=== PATIENT | female | born 1975 | race Two or more races ===

== ENCOUNTER 2020-03-26 15:13 | Inpatient (IN) | payer OTHER ==
[~2020-03-26] VITALS: Ht 160 cm; Wt 61.0 kg
[2020-03-26 15:36] VITALS: BP 114/75
[2020-03-26] MEDS: OXYcodone IR 5MG TABLET PO PRN ×2 (15:56→20:56)
[2020-03-26] MEDS ORDERED: morphine SULFATE 10 MG/ML, 1ML IVPush PRN (16:00)
[2020-03-26] MEDS ORDERED: LORazepam 2 MG/ML, 1ML IVPush PRN (16:00)
[2020-03-26] MEDS ORDERED: ONDANSETRON 2MG/ML, 2ML IVPush PRN (16:00)
[2020-03-26] MEDS ORDERED: ONDANSETRON 2MG/ML, 2ML IV PRN (17:00)
[2020-03-26] MEDS ORDERED: ONDANSETRON ODT 4 MG PO PRN (17:00)
[2020-03-26] MEDS ORDERED: MORPHINE SULFATE 4 MG/ML, 1ML IV PRN (17:00)
[2020-03-26] MEDS ORDERED: OXYcodone IR 5MG TABLET PO PRN (17:00)
[2020-03-26] MEDS ORDERED: PLEASE ENTER HEIGHT AND WEIGHT MC SCH (17:00)
[2020-03-26] MEDS ORDERED: ZOLPIDEM 5MG TABLET PO PRN (17:00)
[2020-03-26] MEDS ORDERED: LISI-420 PO (17:18)
[2020-03-26] MEDS ORDERED: AMIT150T PO (17:18)
[2020-03-26] MEDS ORDERED: LYSI100010 PO (17:18)
[2020-03-26] MEDS ORDERED: MAGN400T36 PO (17:18)
[2020-03-26] MEDS ORDERED: BLAC40CA PO (17:18)
[2020-03-26] MEDS ORDERED: VIT1TABL PO (17:18)
[2020-03-26 17:56] LABS: BASOPHILS # (AUTO) 0.01 x10^3/uL (0-0.1); BASOPHILS % (AUTO) 0 % (0-1); EOSINOPHILS # (AUTO) 0.15 x10^3/uL (0-0.4); EOSINOPHILS % (AUTO) 2 % (1-7); LYMPHOCYTES # (AUTO) 0.89 x10^3/uL (1-3.4); LYMPHOCYTES % (AUTO) 9 % (22-44); MD NO; MEAN CORPUSCULAR HEMOGLOBIN 27.3 pg (27.0-34.8); MEAN CORPUSCULAR HGB CONC 32.7 g/dL (32.4-35.8); MEAN CORPUSCULAR VOLUME 83.4 fL (80-100); MEAN PLATELET VOLUME 6.4 fL (7.4-10.4); MONOCYTES # (AUTO) 0.46 x10^3/uL (0.2-0.8); MONOCYTES % (AUTO) 5 % (2-9); NEUTROPHILS # (AUTO) 8.46 x10^3/uL (1.8-6.8); NEUTROPHILS % (AUTO) 85 % (42-75); PLATELET COUNT 533 x10^3/uL (130-400); RED BLOOD COUNT 4.49 x10^6/uL (3.82-5.3); RED CELL DISTRIBUTION WIDTH 18.3 % (9.6-15.2)
[2020-03-26 18:05] LABS: CHLORIDE 99 mmol/L (98-107)
[2020-03-26 18:19] LABS: ALANINE AMINOTRANSFERASE 14 U/L (12-78); ALKALINE PHOSPHATASE 341 U/L (45-117); ANION GAP 6 mmol/L (5-15); BILIRUBIN,TOTAL 0.3 mg/dL (0.2-1.0); CALCIUM 10.4 mg/dL (8.5-10.1); CREATININE 0.71 mg/dL (0.55-1.02)
[2020-03-26 18:25] LABS: ALBUMIN 2.6 g/dL (3.4-5.0)
[2020-03-26 18:54] VITALS: BP_SYST 102; BP_SYST 117; BP_DIAS 70; BP_DIAS 73
[2020-03-26] MEDS: FAMOTIDINE 20 MG TABLET PO SCH (20:13)
[2020-03-26] MEDS: MORPHINE SULFATE 4 MG/ML, 1ML IVPush PRN ×2 (20:14→23:24)
[2020-03-26] MEDS: LORazepam 0.5MG TABLET PO PRN (20:56)
[2020-03-27 00:37] VITALS: BP 127/89
[2020-03-27] MEDS: OXYcodone IR 5MG TABLET PO PRN (00:52)
[2020-03-27] MEDS: MORPHINE SULFATE 4 MG/ML, 1ML IVPush PRN (02:46)
[2020-03-27] MEDS: LORazepam 0.5MG TABLET PO PRN (03:17)
[2020-03-27 05:54] LABS: BASOPHILS # (AUTO) 0.03 x10^3/uL (0-0.1); BASOPHILS % (AUTO) 0 % (0-1); EOSINOPHILS % (AUTO) 2 % (1-7); LYMPHOCYTES # (AUTO) 0.83 x10^3/uL (1-3.4); LYMPHOCYTES % (AUTO) 9 % (22-44); MD NO; MEAN CORPUSCULAR HEMOGLOBIN 27.2 pg (27.0-34.8); MEAN CORPUSCULAR HGB CONC 32.5 g/dL (32.4-35.8); MEAN CORPUSCULAR VOLUME 83.7 fL (80-100); MEAN PLATELET VOLUME 6.7 fL (7.4-10.4); MONOCYTES # (AUTO) 0.68 x10^3/uL (0.2-0.8); MONOCYTES % (AUTO) 7 % (2-9); NEUTROPHILS # (AUTO) 7.89 x10^3/uL (1.8-6.8); NEUTROPHILS % (AUTO) 82 % (42-75); PLATELET COUNT 489 x10^3/uL (130-400); RED BLOOD COUNT 4.08 x10^6/uL (3.82-5.3); RED CELL DISTRIBUTION WIDTH 17.9 % (9.6-15.2)
[2020-03-27 06:25] VITALS: BP 120/85
[2020-03-27] MEDS: FAMOTIDINE 20 MG TABLET PO SCH ×2 (07:14→21:00)
[2020-03-27 08:32] LABS: MICROSCOPIC AUTO
[2020-03-27] MEDS: LORazepam 2 MG/ML, 1ML IVPush PRN ×6 (09:01→23:48)
[2020-03-27 13:13] VITALS: BP 111/79
[2020-03-27] MEDS ORDERED: CHLORHEXIDINE 15 ML UDC MM ONE (15:30)
[2020-03-27] MEDS ORDERED: BUPIVACAINE/PF 0.5% ONE (15:31)
[2020-03-27] MEDS ORDERED: MIDAZOLAM 1 MG/ML, 2ML ONE (15:40)
[2020-03-27] MEDS ORDERED: FENTANYL PF 100 MCG/2ML ONE ×3 (15:41→18:27)
[2020-03-27] MEDS ORDERED: KETAMINE 10 MG/ML, 20ML ONE (15:55)
[2020-03-27] MEDS ORDERED: PROMETHAZINE 25 MG/ML, 1ML IVPush PRN (16:30)
[2020-03-27] MEDS ORDERED: HYDROcodone/APAP 7.5-325MG/15ML UDC PO PRN (16:30)
[2020-03-27] MEDS ORDERED: OXYcodone 5 MG/5 ML ORAL.SOL UDC PO PRN (16:30)
[2020-03-27] MEDS ORDERED: MEPERIDINE/PF 25MG/0.5ML IVPush PRN (16:30)
[2020-03-27] MEDS ORDERED: KETOROLAC 30 MG/1 ML IVPush PRN (16:30)
[2020-03-27] MEDS ORDERED: SUGAMMADEX 200 MG/2 ML IVPush ONE (16:31)
[2020-03-27] MEDS ORDERED: CEFOTETAN 2 GM ONE (16:31)
[2020-03-27] MEDS ORDERED: METOPROLOL 1 MG/ML, 5ML ONE (16:31)
[2020-03-27] MEDS ORDERED: PROPOFOL 10 MG/ML, 20ML ONE (17:59)
[2020-03-27] MEDS ORDERED: ROCURONIUM 10MG/ML,5ML ONE (17:59)
[2020-03-27] MEDS ORDERED: NEOSTIGMINE 1 MG/ML, 10ML ONE (17:59)
[2020-03-27] MEDS ORDERED: SUCCINYLCHOLINE 20 MG/ML, 10ML ONE (17:59)
[2020-03-27] MEDS ORDERED: ONDANSETRON 2MG/ML, 2ML ONE (17:59)
[2020-03-27] MEDS ORDERED: DEXAMETHASONE 4 MG/ML, 1ML ONE (17:59)
[2020-03-27] MEDS ORDERED: GLYCOPYRROLATE 0.2MG/1ML, 5ML ONE (17:59)
[2020-03-27] MEDS ORDERED: CEFAZOLIN 1,000 MG ONE (17:59)
[2020-03-27] MEDS: FENTANYL PF 100 MCG/2ML IV PRN ×2 (18:28→18:40)
[2020-03-27] MEDS ORDERED: HYDROmorphone 2 MG/ML, 1ML ONE (18:32)
[2020-03-27] MEDS: HYDROmorphone 1 MG/ML, 1ML INJ IVPush PRN ×4 (18:35→19:05)
[2020-03-27] MEDS ORDERED: LORazepam 2 MG/ML, 1ML ONE (18:41)
[2020-03-27] MEDS ORDERED: KETOROLAC 30 MG/1 ML IM SCH (20:00)
[2020-03-27 20:18] VITALS: BP 126/65
[2020-03-27] MEDS: KETOROLAC 30 MG/1 ML IVPush SCH (20:22)
[2020-03-28 01:15] VITALS: BP 105/72
[2020-03-28] MEDS: KETOROLAC 30 MG/1 ML IVPush SCH ×3 (04:09→19:59)
[2020-03-28] MEDS: OXYcodone IR 5MG TABLET PO PRN ×3 (05:27→20:37)
[2020-03-28 06:39] VITALS: BP 135/81
[2020-03-28] MEDS: FAMOTIDINE 20 MG TABLET PO SCH ×2 (08:03→19:59)
[2020-03-28] MEDS: SODIUM CHLORIDE 0.9% 1,000 ML IV SCH ×3 (08:57→20:39)
[2020-03-28 09:01] LABS: BASOPHILS # (AUTO) 0.03 x10^3/uL (0-0.1); BASOPHILS % (AUTO) 0 % (0-1); EOSINOPHILS # (AUTO) 0.01 x10^3/uL (0-0.4); EOSINOPHILS % (AUTO) 0 % (1-7); LYMPHOCYTES # (AUTO) 0.74 x10^3/uL (1-3.4); LYMPHOCYTES % (AUTO) 7 % (22-44); MD NO; MEAN CORPUSCULAR HEMOGLOBIN 26.9 pg (27.0-34.8); MEAN CORPUSCULAR VOLUME 84.2 fL (80-100); MEAN PLATELET VOLUME 5.9 fL (7.4-10.4); MONOCYTES # (AUTO) 0.51 x10^3/uL (0.2-0.8); MONOCYTES % (AUTO) 5 % (2-9); NEUTROPHILS # (AUTO) 9.78 x10^3/uL (1.8-6.8); NEUTROPHILS % (AUTO) 88 % (42-75); PLATELET COUNT 561 x10^3/uL (130-400); RED BLOOD COUNT 3.86 x10^6/uL (3.82-5.3); RED CELL DISTRIBUTION WIDTH 17.9 % (9.6-15.2)
[2020-03-28 09:14] LABS: ANION GAP 9 mmol/L (5-15); CALCIUM 9.6 mg/dL (8.5-10.1); CHLORIDE 100 mmol/L (98-107)
[2020-03-28 12:21] VITALS: BP 122/80
[2020-03-28] MEDS: LORazepam 2 MG/ML, 1ML IVPush PRN ×2 (13:44→19:59)
[2020-03-28 19:55] VITALS: BP 123/79
[2020-03-29 00:02] VITALS: BP 109/65
[2020-03-29 00:43] VITALS: BP 120/85
[2020-03-29 00:46] VITALS: BP 120/85
[2020-03-29] MEDS: KETOROLAC 30 MG/1 ML IVPush SCH ×5 (01:06→20:03)
[2020-03-29] MEDS: OXYcodone IR 5MG TABLET PO PRN ×2 (01:07→06:07)
[2020-03-29] MEDS ORDERED: LORazepam 2 MG/ML, 1ML IVPush PRN (02:08)
[2020-03-29] MEDS: SODIUM CHLORIDE 0.9% 1,000 ML IV SCH ×2 (04:17→08:30)
[2020-03-29 05:00] LABS: BASOPHILS # (AUTO) 0.02 x10^3/uL (0-0.1); BASOPHILS % (AUTO) 0 % (0-1); EOSINOPHILS # (AUTO) 0.11 x10^3/uL (0-0.4); EOSINOPHILS % (AUTO) 2 % (1-7); LYMPHOCYTES # (AUTO) 0.66 x10^3/uL (1-3.4); LYMPHOCYTES % (AUTO) 9 % (22-44); MD NO; MEAN CORPUSCULAR HEMOGLOBIN 27.5 pg (27.0-34.8); MEAN CORPUSCULAR HGB CONC 32.8 g/dL (32.4-35.8); MEAN CORPUSCULAR VOLUME 83.7 fL (80-100); MEAN PLATELET VOLUME 5.8 fL (7.4-10.4); MONOCYTES # (AUTO) 0.54 x10^3/uL (0.2-0.8); MONOCYTES % (AUTO) 7 % (2-9); NEUTROPHILS % (AUTO) 82 % (42-75); PLATELET COUNT 474 x10^3/uL (130-400); RED BLOOD COUNT 3.22 x10^6/uL (3.82-5.3); RED CELL DISTRIBUTION WIDTH 16.9 % (9.6-15.2)
[2020-03-29 05:04] LABS: ANION GAP 9 mmol/L (5-15); CALCIUM 8.4 mg/dL (8.5-10.1); CHLORIDE 105 mmol/L (98-107)
[2020-03-29] MEDS: HYDROmorphone 1 MG/ML, 1ML INJ IV PRN ×8 (07:15→23:02)
[2020-03-29 08:21] VITALS: BP 154/85
[2020-03-29] MEDS ORDERED: LIDOCAINE/PRILOCAINE CRM W/TEG 5GM TP ONE (08:30)
[2020-03-29] MEDS: LIDOCAINE 4% CREAM 5GM TUBE EXT PRN ×4 (08:38→19:19)
[2020-03-29] MEDS: FAMOTIDINE 20 MG TABLET PO SCH ×2 (09:54→20:59)
[2020-03-29] MEDS: LIDOCAINE GEL 2%, 5ML MM PRN ×2 (10:10→19:19)
[2020-03-29 10:28] LABS: INTERNATIONAL NORMALIZED RATIO 1.25 (0.93-1.1); PROTHROMBIN TIME 13.3 Seconds (9.6-11.5)
[2020-03-29] MEDS ORDERED: HYDROmorphone 1 MG/ML, 1ML INJ IV ONE (11:00)
[2020-03-29] MEDS ORDERED: CALCIUM ACETATE/ALUMINUM SULF PACKET TP PRN (11:00)
[2020-03-29] MEDS ORDERED: HYDROmorphone 2 MG/ML, 1ML ONE ×2 (11:27→14:45)
[2020-03-29 13:00] VITALS: BP 136/89
[2020-03-29 20:08] VITALS: BP 149/88
[2020-03-29 21:26] LABS: MICROSCOPIC INDICATED
[2020-03-30] MEDS: LIDOCAINE 4% CREAM 15GM TUBE EXT PRN ×2 (00:20→23:11)
[2020-03-30] MEDS ORDERED: HYDROmorphone 2 MG/ML, 1ML ONE ×5 (00:58→14:37)
[2020-03-30] MEDS: HYDROmorphone 1 MG/ML, 1ML INJ IV PRN ×8 (01:00→22:23)
[2020-03-30] MEDS: KETOROLAC 30 MG/1 ML IVPush SCH ×4 (01:50→20:08)
[2020-03-30 02:29] VITALS: BP 145/87
[2020-03-30 05:02] LABS: BASOPHILS # (AUTO) 0.03 x10^3/uL (0-0.1); BASOPHILS % (AUTO) 0 % (0-1); EOSINOPHILS # (AUTO) 0.24 x10^3/uL (0-0.4); EOSINOPHILS % (AUTO) 3 % (1-7); LYMPHOCYTES # (AUTO) 0.62 x10^3/uL (1-3.4); LYMPHOCYTES % (AUTO) 8 % (22-44); MD NO; MEAN CORPUSCULAR HGB CONC 32.6 g/dL (32.4-35.8); MEAN CORPUSCULAR VOLUME 82.9 fL (80-100); MEAN PLATELET VOLUME 6.2 fL (7.4-10.4); MONOCYTES # (AUTO) 0.61 x10^3/uL (0.2-0.8); MONOCYTES % (AUTO) 8 % (2-9); NEUTROPHILS # (AUTO) 5.98 x10^3/uL (1.8-6.8); NEUTROPHILS % (AUTO) 80 % (42-75); PLATELET COUNT 419 x10^3/uL (130-400); RED BLOOD COUNT 3.74 x10^6/uL (3.82-5.3); RED CELL DISTRIBUTION WIDTH 17.4 % (9.6-15.2)
[2020-03-30 05:12] LABS: CHLORIDE 101 mmol/L (98-107); CREATININE 0.46 mg/dL (0.55-1.02)
[2020-03-30 05:13] LABS: ANION GAP 7 mmol/L (5-15); CALCIUM 8.9 mg/dL (8.5-10.1)
[2020-03-30] MEDS: SODIUM CHLORIDE 0.9% 1,000 ML IV SCH (05:28)
[2020-03-30] MEDS: FAMOTIDINE 20 MG TABLET PO SCH ×2 (08:04→20:07)
[2020-03-30 08:20] VITALS: BP 146/86
[2020-03-30 13:20] VITALS: BP 167/100
[2020-03-30] MEDS: LIDOCAINE GEL 2%, 5ML MM PRN ×2 (16:00→23:10)
[2020-03-30 18:40] VITALS: BP 155/99
[2020-03-30] MEDS: OXYcodone/APAP 5/325MG TABLET PO PRN (20:08)
[2020-03-31] MEDS: KETOROLAC 30 MG/1 ML IVPush SCH ×4 (02:12→20:27)
[2020-03-31 02:23] VITALS: BP 144/90
[2020-03-31] MEDS: OXYcodone/APAP 5/325MG TABLET PO PRN ×3 (02:26→14:25)
[2020-03-31] MEDS: LIDOCAINE GEL 2%, 5ML MM PRN ×2 (05:08→16:51)
[2020-03-31] MEDS: LIDOCAINE 4% CREAM 15GM TUBE EXT PRN ×2 (05:09→16:50)
[2020-03-31 07:15] VITALS: BP 161/114
[2020-03-31] MEDS: FAMOTIDINE 20 MG TABLET PO SCH ×2 (07:39→20:27)
[2020-03-31] MEDS: LISINOPRIL 20 MG TABLET PO SCH (09:43)
[2020-03-31 13:38] VITALS: BP 145/95
[2020-03-31 19:33] VITALS: BP 146/91
[2020-03-31] MEDS: OXYcodone IR 5MG TABLET PO PRN (20:28)
[2020-04-01 01:00] VITALS: BP 142/87
[2020-04-01] MEDS: LIDOCAINE GEL 2%, 5ML MM PRN (01:05)
[2020-04-01] MEDS: LIDOCAINE 4% CREAM 15GM TUBE EXT PRN (01:05)
[2020-04-01] MEDS: KETOROLAC 30 MG/1 ML IVPush SCH ×4 (01:07→20:25)
[2020-04-01] MEDS: OXYcodone IR 5MG TABLET PO PRN ×2 (02:47→08:45)
[2020-04-01] MEDS: HYDROmorphone 1 MG/ML, 1ML INJ IV PRN ×2 (04:25→06:38)
[2020-04-01 05:14] LABS: BASOPHILS # (AUTO) 0.02 x10^3/uL (0-0.1); BASOPHILS % (AUTO) 0 % (0-1); EOSINOPHILS # (AUTO) 0.14 x10^3/uL (0-0.4); EOSINOPHILS % (AUTO) 2 % (1-7); LYMPHOCYTES # (AUTO) 0.56 x10^3/uL (1-3.4); LYMPHOCYTES % (AUTO) 7 % (22-44); MD NO; MEAN CORPUSCULAR HEMOGLOBIN 26.9 pg (27.0-34.8); MEAN CORPUSCULAR HGB CONC 32.6 g/dL (32.4-35.8); MEAN CORPUSCULAR VOLUME 82.5 fL (80-100); MEAN PLATELET VOLUME 6.1 fL (7.4-10.4); MONOCYTES % (AUTO) 5 % (2-9); NEUTROPHILS # (AUTO) 7.15 x10^3/uL (1.8-6.8); NEUTROPHILS % (AUTO) 87 % (42-75); PLATELET COUNT 722 x10^3/uL (130-400); RED BLOOD COUNT 4.22 x10^6/uL (3.82-5.3)
[2020-04-01 05:15] LABS: ANION GAP 8 mmol/L (5-15); CALCIUM 9.6 mg/dL (8.5-10.1); CHLORIDE 97 mmol/L (98-107); CREATININE 0.51 mg/dL (0.55-1.02)
[2020-04-01] MEDS: FAMOTIDINE 20 MG TABLET PO SCH ×2 (08:34→20:25)
[2020-04-01] MEDS: LISINOPRIL 20 MG TABLET PO SCH (08:34)
[2020-04-01 08:39] VITALS: BP 161/101
[2020-04-01] MEDS ORDERED: HYDROmorphone 2MG TABLET ONE (11:50)
[2020-04-01] MEDS ORDERED: POTASSIUM CHLORIDE 20 MEQ TAB.ER.PRT PO ONE (12:00)
[2020-04-01] MEDS ORDERED: HYDROmorphone 4MG TABLET PO PRN (12:00)
[2020-04-01 14:36] VITALS: BP 177/100
[2020-04-01 15:13] VITALS: BP 172/114
[2020-04-01] MEDS ORDERED: HYDROmorphone 2 MG/ML, 1ML ONE (15:28)
[2020-04-01] MEDS ORDERED: HYDROmorphone 1 MG/ML, 1ML INJ IV ONE (15:30)
[2020-04-01 16:33] VITALS: BP 159/94
[2020-04-01] MEDS: HYDROmorphone 2MG TABLET PO PRN ×2 (18:12→21:26)
[2020-04-01 19:24] VITALS: BP 157/80
[2020-04-02] MEDS: HYDROmorphone 2MG TABLET PO PRN ×8 (00:25→23:38)
[2020-04-02 00:32] VITALS: BP 157/96
[2020-04-02] MEDS: LIDOCAINE GEL 2%, 5ML MM PRN (00:40)
[2020-04-02] MEDS: LIDOCAINE 4% CREAM 15GM TUBE EXT PRN ×2 (00:40→09:23)
[2020-04-02 05:13] LABS: ANION GAP 6 mmol/L (5-15); CALCIUM 9.1 mg/dL (8.5-10.1); CHLORIDE 98 mmol/L (98-107); CREATININE 0.53 mg/dL (0.55-1.02)
[2020-04-02] MEDS: LISINOPRIL 20 MG TABLET PO SCH (08:38)
[2020-04-02] MEDS: FAMOTIDINE 20 MG TABLET PO SCH ×2 (08:38→20:38)
[2020-04-02 08:44] VITALS: BP 154/104
[2020-04-02] MEDS: HYDROmorphone 1 MG/ML, 1ML INJ IV PRN ×2 (11:21→15:09)
[2020-04-02] MEDS ORDERED: FENTANYL REMOVE PATCH NOTE XX SCH (11:30)
[2020-04-02] MEDS ORDERED: FENTANYL 50 MCG PATCH TD SCH (11:30)
[2020-04-02 13:21] VITALS: BP 167/100
[2020-04-02] MEDS ORDERED: LORA2ORA7 PO (15:02)
[2020-04-02] MEDS ORDERED: MORP1SYR2 PO (15:05)
[2020-04-02] MEDS ORDERED: DIPH25CA61 PO (15:06)
[2020-04-02 19:24] VITALS: BP 149/90
[2020-04-03 01:32] VITALS: BP 136/85
[2020-04-03] MEDS: HYDROmorphone 1 MG/ML, 1ML INJ IV PRN ×3 (01:44→19:49)
[2020-04-03] MEDS: HYDROmorphone 2MG TABLET PO PRN ×7 (02:34→21:08)
[2020-04-03 05:22] LABS: ANION GAP 8 mmol/L (5-15); CALCIUM 9.7 mg/dL (8.5-10.1); CHLORIDE 96 mmol/L (98-107); CREATININE 0.46 mg/dL (0.55-1.02)
[2020-04-03 05:23] LABS: BASOPHILS # (AUTO) 0.03 x10^3/uL (0-0.1); BASOPHILS % (AUTO) 0 % (0-1); EOSINOPHILS # (AUTO) 0.36 x10^3/uL (0-0.4); EOSINOPHILS % (AUTO) 4 % (1-7); LYMPHOCYTES % (AUTO) 7 % (22-44); MD NO; MEAN CORPUSCULAR HEMOGLOBIN 26.7 pg (27.0-34.8); MEAN CORPUSCULAR HGB CONC 32.7 g/dL (32.4-35.8); MEAN CORPUSCULAR VOLUME 81.8 fL (80-100); MONOCYTES # (AUTO) 0.77 x10^3/uL (0.2-0.8); MONOCYTES % (AUTO) 8 % (2-9); NEUTROPHILS # (AUTO) 7.84 x10^3/uL (1.8-6.8); NEUTROPHILS % (AUTO) 81 % (42-75); PLATELET COUNT 728 x10^3/uL (130-400); RED BLOOD COUNT 4.16 x10^6/uL (3.82-5.3)
[2020-04-03 08:13] VITALS: BP 145/95
[2020-04-03] MEDS: LISINOPRIL 20 MG TABLET PO SCH (08:33)
[2020-04-03] MEDS: FAMOTIDINE 20 MG TABLET PO SCH ×2 (08:34→21:08)
[2020-04-03 12:42] VITALS: BP 139/96
[2020-04-03 19:00] VITALS: BP 143/91
[2020-04-04 00:04] VITALS: BP 150/92
[2020-04-04] MEDS: HYDROmorphone 2MG TABLET PO PRN ×8 (00:07→22:06)
[2020-04-04] MEDS: HYDROmorphone 1 MG/ML, 1ML INJ IV PRN (04:40)
[2020-04-04 07:17] VITALS: BP 131/93
[2020-04-04] MEDS: FAMOTIDINE 20 MG TABLET PO SCH ×2 (08:45→21:13)
[2020-04-04] MEDS: LISINOPRIL 20 MG TABLET PO SCH (08:45)
[2020-04-04 13:16] VITALS: BP_SYST 164; BP_DIAS 108; BP_DIAS 109
[2020-04-04] MEDS ORDERED: FENTANYL REMOVE PATCH NOTE XX SCH (13:30)
[2020-04-04] MEDS ORDERED: FENTANYL 75 MCG PATCH TD SCH (13:30)
[2020-04-04] MEDS: LIDOCAINE 4% CREAM 15GM TUBE EXT PRN (18:30)
[2020-04-04] MEDS: LIDOCAINE GEL 2%, 5ML MM PRN (18:30)
[2020-04-04 19:05] VITALS: BP 151/99
[2020-04-05 00:41] VITALS: BP 130/92
[2020-04-05] MEDS: HYDROmorphone 2MG TABLET PO PRN ×6 (01:14→15:46)
[2020-04-05 07:31] VITALS: BP 135/88
[2020-04-05] MEDS ORDERED: LISINOPRIL 40 MG TABLET ONE (07:41)
[2020-04-05] MEDS: FAMOTIDINE 20 MG TABLET PO SCH (07:44)
[2020-04-05] MEDS: LISINOPRIL 20 MG TABLET PO SCH (07:45)
[2020-04-05] MEDS: LIDOCAINE 4% CREAM 15GM TUBE EXT PRN (08:48)
[2020-04-05] MEDS: LIDOCAINE GEL 2%, 5ML MM PRN (08:48)
[2020-04-05] MEDS ORDERED: HYDR2TAB40 PO (13:56)
[2020-04-05] MEDS ORDERED: CALC1POW TP (13:56)
[2020-04-05] MEDS ORDERED: ZOLP-413 PO (13:56)
[2020-04-05] MEDS ORDERED: LIDO5JEL4 MM (13:56)
[2020-04-05] MEDS ORDERED: LIDO5CRE6 EXT (13:56)
[2020-04-05] MEDS ORDERED: LISI-170 PO (13:56)
[2020-04-05] MEDS ORDERED: FENT1PAT77 TD (13:56)
== END 2020-04-05 16:54 | disposition home health service (06) | DRG 330 ==
LOC: 3WST 15:13
PROVIDERS: ADMIT Specialist; ATTEND Specialist
PROC: 0D1E0Z4 Bypass Large Intestine to Cutaneous, Open Approach (ICD-10-PCS; 2020-03-27)
PROC: 0DTN4ZZ Resection of Sigmoid Colon, Percutaneous Endoscopic Approach (ICD-10-PCS; principal; 2020-03-27 16:00)
DX: N82.3 Fistula of vagina to large intestine (principal); E87.1 Hypo-osmolality and hyponatremia; C53.9 Malignant neoplasm of cervix uteri, unspecified; D64.9 Anemia, unspecified; E86.0 Dehydration; E87.6 Hypokalemia; F41.9 Anxiety disorder, unspecified; K62.7 Radiation proctitis; R33.8 Other retention of urine; T45.1X5A Adverse effect of antineoplastic and immunosuppressive drugs, initial encounter
CPT/HCPCS: 36415; J3490; S0020; 80048; 80053; 81001; 83735; 85025; 85610; 85730; 87086; 87635; G0378; J0690; J1100; J1170; J1885; J2250; J2270; J2405; J2704; J2710; J3010; J0330; J2060; J7030

== ENCOUNTER 2020-04-20 12:46 | Outpatient (CLI) | payer OTHER ==
[~2020-04-20 12:46] MED LIST: AMIT150T PO; BLAC40CA PO; CALC1POW TP; DIPH25CA61 PO; FENT1PAT77 TD; HYDR2TAB40 PO; LIDO5CRE6 EXT; LIDO5JEL4 MM; LISI-170 PO; LISI-420 PO; LORA2ORA7 PO; LYSI100010 PO; MAGN400T36 PO; MORP1SYR2 PO; VIT1TABL PO; ZOLP-413 PO
== END 2020-04-20 23:59 | disposition home or self-care (01) ==
LOC: WOUND 12:46
PROVIDERS: ATTEND Internal Medicine
DX: K94.09 Other complications of colostomy (principal); F41.9 Anxiety disorder, unspecified; Z85.42 Personal history of malignant neoplasm of other parts of uterus; Z87.891 Personal history of nicotine dependence; Y83.8 Other surgical procedures as the cause of abnormal reaction of the patient, or of later complication, without mention of misadventure at the time of the procedure; Y82.8 Other medical devices associated with adverse incidents; Y92.238 Other place in hospital as the place of occurrence of the external cause
CPT/HCPCS: 99215